=== PATIENT | female | born 1970 | race Caucasian/White ===

== ENCOUNTER 2022-05-11 18:04 | Emergency (ER) | payer BC ==
[2022-05-11] MEDS ORDERED: Ketorolac Tromethamine 30 MG/ML VIAL ONE ×2 (21:15→21:19)
[2022-05-11] MEDS ORDERED: Orphenadrine Citrate 60 MG/2 ML VIAL ONE (21:15)
== END 2022-05-11 21:38 | disposition home or self-care (01) ==
LOC: ERS 18:04
DX: M54.42 Lumbago with sciatica, left side (principal)
CPT/HCPCS: 72100; 96372; J1885; J2360

== ENCOUNTER 2022-06-10 09:22 | Outpatient (CLI) | payer BC | END 2022-06-10 09:23 | disposition home or self-care (01) | LOC: TBSIIMAG 09:22 | PROVIDERS: ATTEND Nurse Practitioner Family | DX: M54.32 Sciatica, left side (principal); M47.816 Spondylosis without myelopathy or radiculopathy, lumbar region; R29.890 Loss of height; M51.36 Other intervertebral disc degeneration, lumbar region; M48.061 Spinal stenosis, lumbar region without neurogenic claudication; M47.817 Spondylosis without myelopathy or radiculopathy, lumbosacral region; M51.37 Other intervertebral disc degeneration, lumbosacral region; M48.07 Spinal stenosis, lumbosacral region | CPT/HCPCS: 72148 ==